=== PATIENT | male | born 1965 | race Caucasian/White ===

== ENCOUNTER 2016-10-25 09:21 | Emergency (ER) | payer MEDICAID ==
[~2016-10-25] VITALS: Ht 165.1 cm; Wt 71.0 kg
[2016-10-25 09:30] VITALS: Ht 165.1 cm; Wt 71.0 kg
[2016-10-25] MEDS ORDERED: KETOROLAC 30 MG INJ IM STA (10:18)
--- NOTE | 2016-10-25 10:27 | ERD ---
ER Documentation Chief Complaint Date/Time DATE: 10/25/16 TIME: 10:19 Chief Complaint back pain,sore throat,abominal pain,nausea HPI This is a 51-year-old male with no significant medical history presenting to the emergency department for multiple complaints including sore throat, intermittent fevers, and feeling dizzy. Additionally the patient reports back pain which is been a chronic problem since an accident approximately 3 months ago. The patient states his symptoms onset suddenly about 2 weeks ago and have been intermittent ever since. The patient took no medications at home for symptom relief. The patient denies any nausea, vomiting, diarrhea, myalgia, sick contacts, or other symptoms at this time. ROS All systems reviewed and are negative except as per history of present illness. Medications Home Meds Active Scripts Acetaminophen* (Tylophen*) 500 Mg Capsule, 1 CAP PO Q6H Y for PAIN AND OR ELEVATED TEMP, #20 CAP Prov:JUNE MONDRAGON PA-C 10/25/16 Allergies Allergies: Coded Allergies: No Known Allergy (Unverified , 10/25/16) PMhx/Soc Medical and Surgical Hx: pt denies Medical Hx, pt denies Surgical Hx Hx Alcohol Use: No Hx Substance Use: No Hx Tobacco Use: No Smoking Status: Never smoker FmHx Noncontributory for chief complaint Physical Exam Vitals Vital Signs Date Time Temp Pulse Resp B/P Pulse Ox O2 Delivery O2 Flow Rate FiO2 10/25/16 11:22 98.6 79 18 129/90 98 10/25/16 09:30 98.4 68 18 135/97 98 Physical Exam INITIAL VITAL SIGNS: Reviewed by me. GENERAL: Alert and interactive. No acute distress. HEAD: Head is normocephalic and atraumatic. EYES: EOMI. No scleral icterus. No conjunctival injection. ENT: Slight pharyngeal erythema but no tonsillar hypertrophy or exudate. NECK: Supple. Full range of motion. RESPIRATORY: Normal respiratory effort. Clear breath sounds bilaterally. No wheezing, rales, or rhonchi. CV: Regular rate and rhythm. Normal S1 S2. No S3 or S4. No murmurs. ABDOMEN: Soft, non-distended, non-tender. No guarding. No rebound. No masses. EXTREMITIES: No deformity. SKIN: Warm and dry. NEUROLOGIC: Alert and oriented x 4. Speech is normal. Moves all extremities equally. No motor or sensory deficits noted. Result Diagram: 10/25/16 1030 10/25/16 1030 Results 24 hrs Laboratory Tests Test 10/25/16 10:30 10/25/16 10:36 Alanine Aminotransferase (ALT/SGPT) 34IU/L Albumin 4.5g/dl Albumin/Globulin Ratio 1.36 Alkaline Phosphatase 101IU/L Anion Gap 18 Aspartate Amino Transf (AST/SGOT) 23IU/L Basophils # 0.010^3/ul Basophils % 0.5% Blood Urea Nitrogen 13mg/dl Calcium Level 9.3mg/dl Carbon Dioxide Level 26mmol/L Chloride Level 102mmol/L Creatinine 0.72mg/dl Direct Bilirubin 0.00mg/dl Eosinophils # 0.210^3/ul Eosinophils % 3.2% Globulin 3.30g/dl Glucose Level 93mg/dl Hematocrit 45.8% Hemoglobin 15.9g/dl Indirect Bilirubin 0.8mg/dl Lymphocytes # 1.310^3/ul Lymphocytes % 26.5% Mean Corpuscular Hemoglobin 31.8pg Mean Corpuscular Hemoglobin Concent 34.7g/dl Mean Corpuscular Volume 91.7fl Mean Platelet Volume 8.3fl Monocytes # 0.410^3/ul Monocytes % 8.7% Neutrophils # 3.110^3/ul Neutrophils % 61.1% Nucleated Red Blood Cells # 0.010^3/ul Nucleated Red Blood Cells % 0.0/100WBC Platelet Count 53013^3/UL Potassium Level 4.0mmol/L Red Blood Count 5.0010^6/ul Red Cell Distribution Width 13.4% Sodium Level 142mmol/L Total Bilirubin 0.8mg/dl Total Protein 7.8g/dl White Blood Count 5.010^3/ul Bedside Urine Blood Negative Bedside Urine Glucose (UA) Negative Bedside Urine Ketones (LAB) Negative Bedside Urine Leukocyte Esterase (L Negative Bedside Urine Nitrite (LAB) Negative Bedside Urine Protein (LAB) Negative Bedside Urine pH (LAB) 6.5 Current Medications Medications (Trade) Dose Ordered Sig/Elie Route PRN Reason Start Time Stop Time Status Last Admin Dose Admin Ketorolac Tromethamine (Toradol) 30 mg ONCE STAT IM 10/25/16 10:18 10/25/16 10:19 DC 10/25/16 10:35 Procedures/MDM 51-year-old male presents secondary to complaints of sore throat, intermittent fevers, and back pain. On physical examination the patient's blood pressure slightly elevated at 135/97 which I believe is secondary to pain. All other vitals are within normal limits. On physical examination of the throat there was some slight erythema but no tonsillar hypertrophy or exudate. I believe the patient's symptoms are secondary to viral etiology. I have ordered an injection of 30 mg of Toradol for acute back pain. I have ordered a UA looking for any signs of urinary tract infection or proteinuria. I have ordered a CBC and CMP looking for any signs of leukocytosis, anemia, or other abnormalities. The patient will be reevaluated after treatment in the department. UA results reviewed. UA results revealed and show no signs of urinary tract infection. CBC and CMP results reviewed. Lab studies revealed no significant acute abnormalities. I believe the patient's symptoms are secondary to viral etiology. I have low suspicion for any bronchitis, pneumonia, or other cardiopulmonary abnormalities. The patient is stable for discharge and treatment as an outpatient. The patient agrees with plan of diagnosis and was advised to return to the department immediately for any new or worsening symptoms. All questions and concerns were addressed prior to discharge. Departure Diagnosis: Primary Impression: Upper respiratory infection Condition: Stable Patient Instructions: Preventing Common Respiratory Infections [facility] Additional Instructions: No mas mejor en 2-3 sadler, regresar. Mas peor en 24 horas, regresear rapidamente. Ir a doctor primario in 5-7 sadler. Usar instrucciones cuando shannon medicamento. JUNE MONDRAGON PA-C Oct 25, 2016 10:27
[2016-10-25 10:35] LABS: URINE BLOOD (Dip) POC Negative (NEGATIVE)
[2016-10-25 10:45] LABS: BASOPHILS % 0.5 % (0.0-2.0); EOSINOPHILS # 0.2 10^3/ul (0.0-0.5); EOSINOPHILS % 3.2 % (0.0-7.0); HEMATOCRIT 45.8 % (42.0-52.0); HEMOGLOBIN 15.9 g/dl (14.0-18.0); LYMPHOCYTES # 1.3 10^3/ul (0.8-2.9); LYMPHOCYTES % 26.5 % (15.0-51.0); MEAN CORPUSCULAR HEMOGLOBIN 31.8 pg (29.0-33.0); MEAN CORPUSCULAR HGB CONC 34.7 g/dl (32.0-37.0); MEAN CORPUSCULAR VOLUME 91.7 fl (82.0-101.0); MEAN PLATELET VOLUME 8.3 fl (7.4-10.4); MONOCYTE # 0.4 10^3/ul (0.3-0.9); MONOCYTES % 8.7 % (0.0-11.0); NEUTROPHIL # 3.1 10^3/ul (1.6-7.5); NEUTROPHILS % 61.1 % (39.0-77.0); PLATELET COUNT 183 10^3/UL (140-440); RED CELL DISTRIBUTION WIDTH 13.4 % (11.5-14.5)
[2016-10-25 10:47] LABS: CONDITION 1
[2016-10-25 10:49] LABS: ALBUMIN 4.5 g/dl (3.3-4.9)
[2016-10-25 10:52] LABS: ALBUMIN/GLOBULIN RATIO 1.36; BILIRUBIN,INDIRECT 0.8 mg/dl (0-1.1); BILIRUBIN,TOTAL 0.8 mg/dl (0.2-1.3); CREATININE 0.72 mg/dl (0.61-1.24); TOTAL PROTEIN 7.8 g/dl (6.1-8.1)
[2016-10-25 10:53] LABS: CALCIUM 9.3 mg/dl (8.4-10.2)
[2016-10-25] MEDS ORDERED: ACET500C5 PO (11:18)
[2016-10-25 11:22] VITALS: BP 129/90; PULSE 79; RESP 18; TEMP 98.6
== END 2016-10-25 11:24 | disposition home or self-care (01) ==
LOC: FTE 09:21
DX: J06.9 Acute upper respiratory infection, unspecified (principal)
CPT/HCPCS: 36415; 80053; 81003; 85025; 96372; J1885; Z7502